=== PATIENT | female | born 1965 | race Native Hawaiian/Other Pacific Islander ===

== ENCOUNTER 2017-02-09 12:02 | Outpatient (CLI) | payer OTHER ==
[~2017-02-09 12:02] MED LIST: ADIPEX-P37.5 M1 OR; ALBU90AE13 INH; ALPR1TAB61 PO; ASA LOW DOSE81 MG OR; BUDE1AER5 INH; BUPR150T PO; CELEXA40 MG OR; CILO100T2 PO; CLARITIN10 M1 PO; FURO40TA93 PO; HYDR-2748 PO; HYDROCHLOROT12.5 M1 PO; KLOR-CON M2020 MEQ OR; LYRICA50 MG PO; MIRAPEX0.5 MG OR; MOBIC7.5 M1 OR; NAPROSYN500 MG PO; NASONEX50 MCG/AC; PRILOSEC20 MG OR; RANITIDINE 150150 MG PO; SIMV10TA PO; SINGULAIR10 MG PO; SPIRIVA IN; SYSTANE OP; TIZA4TAB5 PO; XANAX XR1 MG PO; Z-PAK PO
== END 2017-02-09 19:08 | disposition home or self-care (01) ==
LOC: RAD 12:02
DX: M54.5 Low back pain (principal)

== ENCOUNTER 2017-05-19 14:32 | Inpatient (IN) | payer OTHER ==
[~2017-05-19] VITALS: Ht 170.2 cm; Wt 179.8 kg
[2017-05-19] VITALS (7 sets, daily range): BP systolic 95–136; BP diastolic 54–68; TEMP 97.6–99; Ht 170.2 cm; Wt 179.8 kg
[2017-05-19 15:30] LABS: SODIUM 135 mmol/L (136-145)
[2017-05-19 15:31] LABS: PLATELET COUNT 227 K/uL (152-353)
[2017-05-19 15:49] LABS: PARTIAL THROMBOPLASTIN TIME 25.6 SECONDS (24.5-33.6)
[2017-05-19] MEDS ORDERED: ROPINIROLE0.5 MG OR (16:55)
[2017-05-19] MEDS ORDERED: SYMBICORT1 AE1 IN (16:55)
[2017-05-19] MEDS ORDERED: ALBU0.5N13 IN (16:57)
[2017-05-19] MEDS ORDERED: MONTELUKAST SOD10 MG PO (16:57)
[2017-05-19] MEDS ORDERED: DESIPRAMINE50 MG OR (16:58)
[2017-05-19] MEDS ORDERED: LISI5TAB10 PO (17:01)
[2017-05-19] MEDS ORDERED: LORTAB 10-325 M1 TAB PO (17:02)
[2017-05-19] MEDS ORDERED: DICLOFENAC SOD100 M2 PO (17:03)
[2017-05-19] MEDS ORDERED: GABA300C2 PO (17:04)
[2017-05-19] MEDS ORDERED: ACID REDUCER150 MG OR (17:05)
[2017-05-19] MEDS ORDERED: POTA20TA4 PO (17:06)
[2017-05-19] MEDS ORDERED: SPIRIVA IN (17:07)
[2017-05-19] MEDS ORDERED: HYDROCHLOROT12.5 M1 PO (17:08)
[2017-05-19] MEDS ORDERED: LIPITOR40 MG PO (17:09)
[2017-05-19] MEDS ORDERED: OMEPRAZOLE20 M1 OR (17:09)
[2017-05-19] MEDS ORDERED: ESCITALOPRAM20 MG PO (17:10)
[2017-05-19] MEDS ORDERED: FLUTICASONE0.05 % EX (17:10)
[2017-05-19] MEDS ORDERED: CELECOXIB200 MG PO (17:11)
[2017-05-20] VITALS: BP 114/52; TEMP 97.9
[2017-05-20 04:00] VITALS: BP 122/64; TEMP 98.1
[2017-05-20 05:25] LABS: PLATELET COUNT 213 K/uL (152-353)
[2017-05-20 05:43] LABS: POTASSIUM 4.1 mmol/L (3.6-5.2)
[2017-05-20 08:00] VITALS: BP 117/70; TEMP 97.6
[2017-05-20 12:00] VITALS: BP 148/57; TEMP 98.2
[2017-05-20 16:00] VITALS: BP 114/54; TEMP 97.9
[2017-05-20 20:00] VITALS: BP 131/69; TEMP 98
[2017-05-21] VITALS: BP 112/61; TEMP 97.9
[2017-05-21 04:00] VITALS: BP 117/62; TEMP 98.2
[2017-05-21 05:05] LABS: PLATELET COUNT 193 K/uL (152-353)
[2017-05-21 05:30] LABS: POTASSIUM 4.3 mmol/L (3.6-5.2)
[2017-05-21 08:00] VITALS: BP 110/49; TEMP 97.9
[2017-05-21 12:00] VITALS: BP 117/74; TEMP 98
[2017-05-21 16:00] VITALS: BP 93/59; TEMP 97.6
[2017-05-21 20:00] VITALS: BP 115/55; TEMP 97.8
[2017-05-22] VITALS: BP 103/62; BP 150/76; TEMP 97.8; TEMP 98.6
[2017-05-22 04:00] VITALS: BP 108/69; TEMP 97.7
[2017-05-22 06:03] LABS: POTASSIUM 4.4 mmol/L (3.6-5.2)
[2017-05-22 08:00] VITALS: BP 104/58; TEMP 97.6
[2017-05-22 11:07] LABS: PLATELET COUNT 210 K/uL (152-353)
[2017-05-22 12:00] VITALS: BP 94/49; TEMP 97.9
[2017-05-22 16:00] VITALS: BP 132/68; TEMP 98
[2017-05-22 20:00] VITALS: BP 117/61; BP 183/53; TEMP 97.5; TEMP 97.8
[2017-05-23] VITALS: BP 92/53; TEMP 97.9
[2017-05-23 04:00] VITALS: BP 99/58; TEMP 98.9
[2017-05-23 05:16] LABS: PLATELET COUNT 226 K/uL (152-353)
[2017-05-23 05:26] LABS: POTASSIUM 4.2 mmol/L (3.6-5.2)
[2017-05-23 08:00] VITALS: BP 103/42; TEMP 98
== END 2017-05-23 10:35 | disposition home or self-care (01) | DRG 191 ==
LOC: ED 14:32 → MED/SURG 16:32
PROVIDERS: ADMIT Emergency Medicine
DX: J44.1 Chronic obstructive pulmonary disease with (acute) exacerbation (principal); Z68.44 Body mass index [BMI] 60.0-69.9, adult; E66.01 Morbid (severe) obesity due to excess calories; R06.02 Shortness of breath; Z72.0 Tobacco use; M50.30 Other cervical disc degeneration, unspecified cervical region; M51.36 Other intervertebral disc degeneration, lumbar region; K59.09 Other constipation
CPT/HCPCS: 36415; 36600; 80048; 80053; 81000; 82550; 82553; 82805; 83735; 83880; 84484; 85027; 85379; 85610; 85730; 93005; 93306; 94640; 94664; 94760; 96365; 96375; 99284; J0696; J1100; J1956; J2930

== ENCOUNTER 2017-07-13 18:02 | Emergency (ER) | payer OTHER ==
[~2017-07-13] VITALS: Ht 170.2 cm; Wt 154.2 kg
[~2017-07-13 18:02] MED LIST changes: +ACID REDUCER150 MG OR; +ALBU0.5N13 IN; +CELECOXIB200 MG PO; +DESIPRAMINE50 MG OR; +DICLOFENAC SOD100 M2 PO; +ESCITALOPRAM20 MG PO; +FLUTICASONE0.05 % EX; +GABA300C2 PO; +LIPITOR40 MG PO; +LISI5TAB10 PO; +LORTAB 10-325 M1 TAB PO; +MONTELUKAST SOD10 MG PO; +OMEPRAZOLE20 M1 OR; +POTA20TA4 PO; +ROPINIROLE0.5 MG OR; +SYMBICORT1 AE1 IN
[2017-07-13 18:28] VITALS: TEMP 98.2
[2017-07-13 19:28] LABS: PLATELET COUNT 223 K/uL (152-353)
[2017-07-13 19:34] VITALS: BP 135/82
== END 2017-07-13 19:35 | disposition home or self-care (01) ==
LOC: ED 18:02
DX: K04.7 Periapical abscess without sinus (principal); K02.9 Dental caries, unspecified; R68.84 Jaw pain
CPT/HCPCS: 36415; 85027; 96372; 99283; J0696; J1885

== ENCOUNTER 2017-09-02 14:07 | Outpatient (CLI) | payer OTHER | END 2017-09-02 23:59 | disposition home or self-care (01) | LOC: RAD 14:07 | DX: M47.816 Spondylosis without myelopathy or radiculopathy, lumbar region (principal); M47.817 Spondylosis without myelopathy or radiculopathy, lumbosacral region ==

== ENCOUNTER 2017-09-27 16:54 | Outpatient (CLI) | payer OTHER ==
[2017-09-27 18:10] LABS: POTASSIUM 4.7 mmol/L (3.6-5.2)
== END 2017-09-27 18:13 | disposition home or self-care (01) ==
LOC: LABW 16:54
PROVIDERS: Nurse Practitioner Primary Care
DX: G25.81 Restless legs syndrome (principal); I50.9 Heart failure, unspecified
CPT/HCPCS: 80048; 82607; 82728; 82746

== ENCOUNTER 2018-01-10 14:05 | Outpatient (CLI) | payer OTHER | END 2018-01-10 19:52 | disposition home or self-care (01) | LOC: RAD 14:05 | DX: M54.12 Radiculopathy, cervical region (principal) ==

== ENCOUNTER 2018-03-01 09:15 | Emergency (ER) | payer OTHER ==
[~2018-03-01] VITALS: Ht 170.2 cm; Wt 136.5 kg
[2018-03-01 09:15] VITALS: TEMP 97.9
[2018-03-01 09:47] LABS: PLATELET COUNT 256 K/uL (152-353)
[2018-03-01 10:03] LABS: POTASSIUM 4.2 mmol/L (3.6-5.2); SODIUM 142 mmol/L (136-145)
[2018-03-01 12:33] VITALS: BP 122/58
== END 2018-03-01 12:48 | disposition home or self-care (01) ==
LOC: ED 09:15
DX: R07.89 Other chest pain (principal); M94.0 Chondrocostal junction syndrome [Tietze]
CPT/HCPCS: 36415; 80053; 81000; 82550; 82553; 83880; 84484; 85027; 93005; 99284

== ENCOUNTER 2018-03-01 09:30 | Outpatient (CLI) | payer OTHER | END 2018-03-01 09:34 | disposition short-term general hospital (02) | LOC: AMB 09:30 | DX: J44.1 Chronic obstructive pulmonary disease with (acute) exacerbation (principal); R07.89 Other chest pain | CPT/HCPCS: A0425; A0427 ==

== ENCOUNTER 2018-03-16 13:50 | Outpatient (CLI) | payer OTHER ==
[2018-03-16 14:10] LABS: POTASSIUM 4.8 mmol/L (3.6-5.2)
== END 2018-03-16 19:35 | disposition home or self-care (01) ==
LOC: LABW 13:50
PROVIDERS: Internal Medicine Cardiovascular Disease
DX: I50.9 Heart failure, unspecified (principal); Z79.899 Other long term (current) drug therapy
CPT/HCPCS: 36415; 80048; 83880

== ENCOUNTER → 2018-07-06 20:31 | Outpatient (CLI) | payer OTHER | END | disposition home or self-care (01) | LOC: AMB 20:31 | DX: Z03.89 Encounter for observation for other suspected diseases and conditions ruled out (principal) ==

== ENCOUNTER 2018-07-06 20:56 | Emergency (ER) | payer OTHER ==
[~2018-07-06] VITALS: Ht 170.2 cm; Wt 188.2 kg
[2018-07-06 21:40] LABS: PLATELET COUNT 194 K/uL (152-353)
[2018-07-06 21:49] LABS: POTASSIUM 4.6 mmol/L (3.6-5.2); SODIUM 139 mmol/L (136-145)
[2018-07-06 22:40] VITALS: BP 128/65; TEMP 98.4
== END 2018-07-06 22:40 | disposition home or self-care (01) ==
LOC: ED 20:56
PROVIDERS: Emergency Medicine
DX: S20.212A Contusion of left front wall of thorax, initial encounter (principal); S20.211A Contusion of right front wall of thorax, initial encounter; S53.492A Other sprain of left elbow, initial encounter; S63.592A Other specified sprain of left wrist, initial encounter; W18.39XA Other fall on same level, initial encounter; Y92.89 Other specified places as the place of occurrence of the external cause
CPT/HCPCS: 36415; 80053; 82550; 82553; 84484; 85027; 93005; 99283

== ENCOUNTER 2018-08-14 19:05 | Outpatient (CLI) | payer OTHER ==
[2018-08-15] MEDS ORDERED: HYDR-3182 PO (14:00)
[2018-08-15] MEDS ORDERED: CYCL10TA35 PO (14:00)
[2018-08-15] MEDS ORDERED: FURO40TA93 PO (14:01)
[2018-08-15] MEDS ORDERED: LORADAMED10 MG PO (14:02)
[2018-08-15] MEDS ORDERED: TRAMADOL HYDROC50 MG PO (14:02)
[2018-08-15] MEDS ORDERED: PROAIR HFA INH (14:03)
== END 2018-08-14 19:08 | disposition short-term general hospital (02) ==
LOC: AMB 19:05
DX: R06.09 Other forms of dyspnea (principal)
CPT/HCPCS: A0425; A0427

== ENCOUNTER 2018-08-14 19:17 | Inpatient (IN) | payer OTHER ==
[~2018-08-14] VITALS: Ht 170.2 cm; Wt 194.3 kg
[2018-08-14 19:21] VITALS: BP 113/50; TEMP 98
[2018-08-14 20:31] LABS: PLATELET COUNT 202 K/uL (152-353)
[2018-08-14 20:46] LABS: POTASSIUM 4.5 mmol/L (3.6-5.2); SODIUM 138 mmol/L (136-145)
[2018-08-15 02:20] VITALS: BP 106/44; TEMP 100.2; Ht 170.2 cm; Wt 194.3 kg
[2018-08-15 04:00] VITALS: BP 94/43; TEMP 98.8
[2018-08-15 04:53] LABS: PLATELET COUNT 204 K/uL (152-353)
[2018-08-15 05:21] LABS: POTASSIUM 3.8 mmol/L (3.6-5.2)
[2018-08-15 08:00] VITALS: BP 121/56; TEMP 98.4
[2018-08-15 12:00] VITALS: BP 136/64; TEMP 97
[2018-08-15] MEDS ORDERED: HYDR-3182 PO (14:00)
[2018-08-15] MEDS ORDERED: CYCL10TA35 PO (14:00)
[2018-08-15] MEDS ORDERED: FURO40TA93 PO (14:01)
[2018-08-15] MEDS ORDERED: LORADAMED10 MG PO (14:02)
[2018-08-15] MEDS ORDERED: TRAMADOL HYDROC50 MG PO (14:02)
[2018-08-15] MEDS ORDERED: PROAIR HFA INH (14:03)
[2018-08-15 16:00] VITALS: BP 112/50; TEMP 98.1
[2018-08-15 20:00] VITALS: BP 115/66; TEMP 98.9
[2018-08-16] VITALS (7 sets, daily range): BP systolic 102–125; BP diastolic 46–72; TEMP 97.8–99.3
[2018-08-16 07:53] LABS: PLATELET COUNT 173 K/uL (152-353)
[2018-08-16 08:36] LABS: POTASSIUM 4.1 mmol/L (3.6-5.2)
[2018-08-17] VITALS: BP 107/49; TEMP 98.8
[2018-08-17 04:00] VITALS: BP 112/54; TEMP 98.5
[2018-08-17 06:21] LABS: PLATELET COUNT 201 K/uL (152-353)
[2018-08-17 06:29] LABS: POTASSIUM 4.9 mmol/L (3.6-5.2)
[2018-08-17 08:00] VITALS: BP 111/49; TEMP 98.1
[2018-08-17 12:00] VITALS: BP 116/41; TEMP 98.3
[2018-08-17 16:00] VITALS: BP 138/67; TEMP 98
[2018-08-17 20:25] VITALS: BP 130/69; TEMP 98.1
[2018-08-18 00:23] VITALS: BP 139/64; TEMP 98.3
[2018-08-18 04:00] VITALS: BP 178/78
[2018-08-18 05:50] LABS: PLATELET COUNT 207 K/uL (152-353)
[2018-08-18 05:58] LABS: POTASSIUM 4.3 mmol/L (3.6-5.2)
[2018-08-18 08:00] VITALS: BP 148/66; TEMP 97.5
[2018-08-18 12:00] VITALS: BP 143/67; TEMP 97.4
[2018-08-18 16:00] VITALS: BP 139/67; TEMP 97.7
[2018-08-18 20:00] VITALS: BP 125/74; TEMP 98.2
[2018-08-19] VITALS: BP 174/80
[2018-08-19 04:05] VITALS: BP 146/69; TEMP 98.6
[2018-08-19 05:24] LABS: PLATELET COUNT 186 K/uL (152-353)
[2018-08-19 05:34] LABS: POTASSIUM 4.1 mmol/L (3.6-5.2)
[2018-08-19 08:00] VITALS: BP 132/76; TEMP 97.9
[2018-08-19 12:00] VITALS: BP 122/71; TEMP 98.3
[2018-08-19 13:30] VITALS: BP 133/68
[2018-08-19 13:35] VITALS: BP 165/108
== END 2018-08-19 14:05 | disposition short-term general hospital (02) | DRG 193 ==
LOC: ED 19:17 → MED/SURG 21:45 → ICU 08-19 13:16
PROVIDERS: Emergency Medicine; ADMIT Internal Medicine
DX: J09.X1 Influenza due to identified novel influenza A virus with pneumonia (principal); J80 Acute respiratory distress syndrome; J44.0 Chronic obstructive pulmonary disease with (acute) lower respiratory infection; Z68.44 Body mass index [BMI] 60.0-69.9, adult; K21.9 Gastro-esophageal reflux disease without esophagitis; E78.5 Hyperlipidemia, unspecified; I10 Essential (primary) hypertension; E87.6 Hypokalemia; F41.8 Other specified anxiety disorders; E66.01 Morbid (severe) obesity due to excess calories; Z71.3 Dietary counseling and surveillance; G62.89 Other specified polyneuropathies; F17.210 Nicotine dependence, cigarettes, uncomplicated
CPT/HCPCS: 31500; 36415; 36600; 80053; 81000; 82550; 82805; 83605; 83880; 84484; 85027; 85379; 87040; 87070; 87077; 87205; 87502; 87899; 93005; 94640; 94664; 94760; 96365; 96366; 99284; J0456; J0696; J1650; J2060; J2543; J2930; J3370

== ENCOUNTER 2018-09-30 12:55 | Outpatient (CLI) | payer OTHER ==
[~2018-09-30 12:55] MED LIST changes: +CYCL10TA35 PO; +HYDR-3182 PO; +LORADAMED10 MG PO; +PROAIR HFA INH; +TRAMADOL HYDROC50 MG PO
== END 2018-09-30 12:58 | disposition short-term general hospital (02) ==
LOC: AMB 12:55
DX: R06.02 Shortness of breath (principal)
CPT/HCPCS: A0425; A0427

== ENCOUNTER 2018-09-30 13:02 | Emergency (ER) | payer OTHER ==
[~2018-09-30] VITALS: Ht 170.2 cm; Wt 190.1 kg
[2018-09-30 14:18] LABS: PLATELET COUNT 223 K/uL (152-353)
[2018-09-30 14:25] LABS: SODIUM 139 mmol/L (136-145)
[2018-09-30 15:05] VITALS: BP 118/67; TEMP 97.5
== END 2018-09-30 15:05 | disposition home or self-care (01) ==
LOC: ED 13:02
PROVIDERS: Emergency Medicine
DX: I50.9 Heart failure, unspecified (principal)
CPT/HCPCS: 80053; 81000; 82550; 82553; 83880; 84484; 85027; 93005; 94664; 96374; 96375; 99284; J1940; J2930

== ENCOUNTER 2018-10-07 17:06 | Emergency (ER) | payer OTHER ==
[~2018-10-07] VITALS: Ht 170.2 cm; Wt 191.9 kg
[2018-10-07 17:15] VITALS: TEMP 99.1
[2018-10-07 17:51] LABS: PLATELET COUNT 209 K/uL (152-353)
[2018-10-07 18:01] LABS: POTASSIUM 4.6 mmol/L (3.6-5.2); SODIUM 141 mmol/L (136-145)
[2018-10-07 21:08] LABS: PARTIAL THROMBOPLASTIN TIME 23.2 SECONDS (24.5-33.6)
[2018-10-07 21:10] VITALS: BP 127/77
== END 2018-10-07 23:34 | disposition short-term general hospital (02) ==
LOC: ED 17:06
PROVIDERS: Emergency Medicine
DX: I50.9 Heart failure, unspecified (principal); R00.0 Tachycardia, unspecified
CPT/HCPCS: 80053; 82550; 83605; 83735; 83880; 84484; 85027; 85610; 85730; 87040; 93005; 94664; 99284; J0696; J1940; J3475

== ENCOUNTER 2018-11-23 16:49 | Emergency (ER) | payer OTHER ==
[~2018-11-23] VITALS: Ht 170.2 cm; Wt 191.9 kg
[2018-11-23 21:16] VITALS: BP 136/70; TEMP 98.1
== END 2018-11-23 21:16 | disposition home or self-care (01) ==
LOC: ED 16:49
DX: S39.012A Strain of muscle, fascia and tendon of lower back, initial encounter (principal); S76.012A Strain of muscle, fascia and tendon of left hip, initial encounter; W18.39XA Other fall on same level, initial encounter; Y92.098 Other place in other non-institutional residence as the place of occurrence of the external cause
CPT/HCPCS: 99283

== ENCOUNTER 2019-03-06 14:05 | Outpatient (CLI) | payer OTHER ==
[~2019-03-06 14:05] MED LIST changes: -ACID REDUCER150 MG OR; +ACID REDUCER150 MG PO; -DESIPRAMINE50 MG OR; +DESIPRAMINE50 MG PO; -OMEPRAZOLE20 M1 OR; +OMEPRAZOLE20 M1 PO
[2019-03-06] MEDS ORDERED: ROPINIROLE2 M1 PO (14:33)
[2019-03-06] MEDS ORDERED: CYCLOBENZAPRINE5 MG PO (14:34)
[2019-03-06] MEDS ORDERED: DOK100 MG PO (14:35)
== END 2019-03-06 14:08 | disposition short-term general hospital (02) ==
LOC: AMB 14:05
DX: M25.511 Pain in right shoulder (principal); S41.111A Laceration without foreign body of right upper arm, initial encounter; W18.39XA Other fall on same level, initial encounter; Y93.89 Activity, other specified; Y92.018 Other place in single-family (private) house as the place of occurrence of the external cause
CPT/HCPCS: A0425; A0429

== ENCOUNTER 2019-03-06 14:16 | Observation (INO) | payer OTHER ==
[~2019-03-06] VITALS: Ht 170.2 cm; Wt 187.8 kg
[2019-03-06] VITALS (12 sets, daily range): BP systolic 72–121; BP diastolic 34–70; TEMP 97.7–98.1; Ht 170.2 cm; Wt 187.8 kg
[2019-03-06] MEDS ORDERED: ROPINIROLE2 M1 PO (14:33)
[2019-03-06] MEDS ORDERED: CYCLOBENZAPRINE5 MG PO (14:34)
[2019-03-06] MEDS ORDERED: DOK100 MG PO (14:35)
[2019-03-06 14:43] LABS: PLATELET COUNT 252 K/uL (152-353)
[2019-03-06 14:53] LABS: POTASSIUM 5.5 mmol/L (3.6-5.2)
[2019-03-07 04:00] VITALS: BP 97/38; TEMP 97.9
[2019-03-07 05:33] LABS: PLATELET COUNT 171 K/uL (152-353)
[2019-03-07 05:39] LABS: POTASSIUM 4.8 mmol/L (3.6-5.2)
[2019-03-07 08:00] VITALS: BP 72/38; TEMP 98.5
[2019-03-07 12:00] VITALS: BP 76/43; TEMP 98.1
[2019-03-07 16:00] VITALS: BP 103/79; TEMP 99
[2019-03-07 20:00] VITALS: BP 92/72; TEMP 99.9
[2019-03-07 23:55] VITALS: BP 80/52; TEMP 99.4
[2019-03-08 04:00] VITALS: BP 116/99; TEMP 99.9
[2019-03-08 08:00] VITALS: BP 96/43; TEMP 98.6
[2019-03-08 08:21] LABS: PLATELET COUNT 198 K/uL (152-353)
[2019-03-08 08:22] LABS: POTASSIUM 4.7 mmol/L (3.6-5.2)
[2019-03-08 12:00] VITALS: BP 98/47; TEMP 98.7
[2019-03-08 16:00] VITALS: BP 97/46; TEMP 98.5
[2019-03-08 20:00] VITALS: BP 92/41; TEMP 99.3
[2019-03-08 23:59] VITALS: BP 90/40; TEMP 98.6
[2019-03-09 04:00] VITALS: BP 92/44; TEMP 98.6
[2019-03-09 05:17] LABS: POTASSIUM 4.8 mmol/L (3.6-5.2)
[2019-03-09 08:00] VITALS: BP 102/48; TEMP 97.9
== END 2019-03-09 09:40 | disposition home or self-care (01) ==
LOC: ED 14:16 → MED/SURG 17:08
PROVIDERS: Family Medicine; Internal Medicine; ADMIT Student in an Organized Health Care Education/Training Program
DX: N17.8 Other acute kidney failure (principal); E86.0 Dehydration; J80 Acute respiratory distress syndrome; J44.1 Chronic obstructive pulmonary disease with (acute) exacerbation; E66.01 Morbid (severe) obesity due to excess calories; I10 Essential (primary) hypertension; E78.49 Other hyperlipidemia; M79.7 Fibromyalgia; K21.9 Gastro-esophageal reflux disease without esophagitis; I50.9 Heart failure, unspecified; G62.89 Other specified polyneuropathies; I95.89 Other hypotension; R51 Headache
CPT/HCPCS: 36415; 80048; 80053; 81000; 82533; 82570; 84300; 84443; 85027; 93005; 93306; 94640; 94664; 94760; 96360; 96361; 96365; 96366; 96372; 96375; 99220; 99284; G0378; J1650; J2270

== ENCOUNTER 2019-07-20 11:22 | Outpatient (CLI) | payer OTHER ==
[~2019-07-20 11:22] MED LIST changes: +CYCLOBENZAPRINE5 MG PO; +DOK100 MG PO; +ROPINIROLE2 M1 PO
== END 2019-07-20 11:26 | disposition short-term general hospital (02) ==
LOC: AMB 11:22
DX: R45.851 Suicidal ideations (principal)
CPT/HCPCS: A0425; A0429

== ENCOUNTER 2019-07-20 11:30 | Emergency (ER) | payer OTHER ==
[~2019-07-20] VITALS: Ht 170.2 cm; Wt 176.0 kg
[2019-07-20 12:25] LABS: PLATELET COUNT 237 K/uL (152-353)
[2019-07-20 12:32] LABS: POTASSIUM 4.7 mmol/L (3.6-5.2)
[2019-07-20 16:35] VITALS: BP 134/78; TEMP 98
== END 2019-07-20 16:35 | disposition home or self-care (01) ==
LOC: ED 11:30
PROVIDERS: Emergency Medicine
DX: F32.89 Other specified depressive episodes (principal); I50.9 Heart failure, unspecified
CPT/HCPCS: 80053; 80307; 80320; 80329; 81000; 85027; 93005; 96374; 99285; J1940

== ENCOUNTER 2019-08-21 13:03 | Outpatient (CLI) | payer OTHER | END 2019-08-21 19:11 | disposition home or self-care (01) | LOC: MAMMO 13:03 | DX: Z12.31 Encounter for screening mammogram for malignant neoplasm of breast (principal) ==

== ENCOUNTER 2020-01-09 14:34 | Outpatient (CLI) | payer OTHER | END 2020-01-09 20:39 | disposition home or self-care (01) | LOC: CT 14:34 | DX: Z79.899 Other long term (current) drug therapy (principal); S09.8XXA Other specified injuries of head, initial encounter; R51 Headache; R55 Syncope and collapse ==

== ENCOUNTER 2021-02-09 18:15 | Emergency (ER) | payer OTHER ==
[~2021-02-09] VITALS: Ht 167.6 cm; Wt 176.9 kg
[~2021-02-09 18:15] MED LIST changes: +FENT50DI TD; +LORA0.5T17 PO
[2021-02-09 18:35] VITALS: BP 158/110
[2021-02-09 19:34] VITALS: TEMP 98.5
== END 2021-02-09 19:34 | disposition home or self-care (01) ==
LOC: ED 18:15
DX: K08.89 Other specified disorders of teeth and supporting structures (principal); K04.7 Periapical abscess without sinus
CPT/HCPCS: 96372; 99283; J0696; J1885; J2930

== ENCOUNTER 2021-03-10 07:38 | Outpatient (CLI) | payer OTHER | END 2021-03-10 19:06 | disposition home or self-care (01) | LOC: US 07:38 | PROVIDERS: ATTEND Internal Medicine | DX: H92.02 Otalgia, left ear (principal); H91.8X2 Other specified hearing loss, left ear; T14.8XXA Other injury of unspecified body region, initial encounter; M79.642 Pain in left hand; S67.22XA Crushing injury of left hand, initial encounter; N18.32 Chronic kidney disease, stage 3b ==

== ENCOUNTER 2021-06-09 18:32 | Emergency (ER) | payer OTHER ==
[~2021-06-09] VITALS: Ht 167.6 cm; Wt 176.9 kg
[2021-06-09 19:08] LABS: PLATELET COUNT 191 K/uL (152-353)
[2021-06-09 19:24] LABS: POTASSIUM 4.9 mmol/L (3.6-5.2)
[2021-06-09 23:20] VITALS: BP 112/57; TEMP 98.1
== END 2021-06-09 23:20 | disposition home or self-care (01) ==
LOC: ED 18:32
PROVIDERS: Emergency Medicine Emergency Medical Services
DX: R06.09 Other forms of dyspnea (principal); I50.9 Heart failure, unspecified; J44.9 Chronic obstructive pulmonary disease, unspecified; Z20.822 Contact with and (suspected) exposure to COVID-19; F17.210 Nicotine dependence, cigarettes, uncomplicated
CPT/HCPCS: 36415; 80053; 83880; 84484; 85027; 87502; 87635; 93005; 94664; 96374; 96375; 99284; J1940; J2930; U0003

== ENCOUNTER 2021-06-15 19:45 | Inpatient (IN) | payer OTHER ==
[~2021-06-15] VITALS: Ht 170.2 cm; Wt 158.9 kg
[2021-06-15] VITALS (8 sets, daily range): BP systolic 135–157; BP diastolic 66–86; TEMP 98.5–99.2; Ht 170.2 cm; Wt 158.9 kg
[2021-06-15 20:57] LABS: PLATELET COUNT 297 K/uL (152-353)
[2021-06-15 21:06] LABS: POTASSIUM 3.9 mmol/L (3.6-5.2)
[2021-06-16 03:57] VITALS: BP 110/62; TEMP 98.8
[2021-06-16 05:23] LABS: PLATELET COUNT 290 K/uL (152-353)
[2021-06-16 05:39] LABS: POTASSIUM 4.6 mmol/L (3.6-5.2)
[2021-06-16 08:00] VITALS: BP 118/63; BP 133/78; TEMP 97.9; TEMP 98.6
[2021-06-16] MEDS ORDERED: METO2.5T3 PO (11:32)
[2021-06-16] MEDS ORDERED: DULOXETINE HCL30 MG PO (11:33)
[2021-06-16 12:00] VITALS: BP 133/78; TEMP 98.6
[2021-06-16 16:00] VITALS: BP 119/66; TEMP 98.4
[2021-06-16 20:10] VITALS: BP 125/52; TEMP 98
[2021-06-17] VITALS: BP 138/66; TEMP 98.6
[2021-06-17 04:00] VITALS: BP 142/51; TEMP 98.4
[2021-06-17 08:00] VITALS: BP 118/67; TEMP 97.6
[2021-06-17 08:05] LABS: PLATELET COUNT 328 K/uL (152-353)
[2021-06-17 08:25] LABS: POTASSIUM 4.4 mmol/L (3.6-5.2)
[2021-06-17 12:00] VITALS: BP 121/66; TEMP 98.7
[2021-06-17 16:00] VITALS: BP 107/59; TEMP 98.4
[2021-06-17 20:00] VITALS: BP 114/60; TEMP 98.3
[2021-06-18] VITALS: BP 146/68; TEMP 98.3
[2021-06-18 04:19] VITALS: BP 114/88; TEMP 98.8
[2021-06-18 04:41] LABS: PLATELET COUNT 317 K/uL (152-353)
[2021-06-18 04:51] LABS: POTASSIUM 4.9 mmol/L (3.6-5.2)
[2021-06-18 08:00] VITALS: BP 118/62; TEMP 98.1
[2021-06-18 12:00] VITALS: BP 116/68; TEMP 98.2
[2021-06-18 16:00] VITALS: BP 132/69; TEMP 98.1
[2021-06-18] MEDS ORDERED: LEVOFLOXACIN750 MG PO (17:34)
== END 2021-06-18 18:20 | disposition home health service (06) | DRG 190 ==
LOC: ED 19:45 → MED/SURG 22:56
PROVIDERS: ADMIT Emergency Medicine Emergency Medical Services; ATTEND Internal Medicine Endocrinology, Diabetes & Metabolism
DX: J44.0 Chronic obstructive pulmonary disease with (acute) lower respiratory infection (principal); J18.8 Other pneumonia, unspecified organism; N17.8 Other acute kidney failure; Z68.43 Body mass index [BMI] 50.0-59.9, adult; E78.49 Other hyperlipidemia; K21.9 Gastro-esophageal reflux disease without esophagitis; E66.01 Morbid (severe) obesity due to excess calories; M79.7 Fibromyalgia; I11.0 Hypertensive heart disease with heart failure; I50.9 Heart failure, unspecified
CPT/HCPCS: 36415; 80048; 80053; 83880; 84484; 85027; 87502; 87635; 93005; 94640; 94664; 94760; 96360; 96365; 96366; 96367; 96375; 99284; J0456; J0696; J2930; U0003

== ENCOUNTER 2021-07-21 18:49 | Emergency (ER) | payer OTHER ==
[~2021-07-21] VITALS: Ht 170.2 cm; Wt 158.8 kg
[~2021-07-21 18:49] MED LIST changes: +DULOXETINE HCL30 MG PO; +LEVOFLOXACIN750 MG PO; +METO2.5T3 PO
[2021-07-21 19:47] VITALS: BP 119/66; TEMP 98.6
== END 2021-07-21 19:47 | disposition home or self-care (01) ==
LOC: ED 18:49
DX: S81.052A Open bite, left knee, initial encounter (principal); W54.0XXA Bitten by dog, initial encounter; Y92.89 Other specified places as the place of occurrence of the external cause
CPT/HCPCS: 90471; 90715; 99283

== ENCOUNTER 2021-10-27 13:42 | Outpatient (CLI) | payer OTHER | END 2021-10-27 20:15 | disposition home or self-care (01) | LOC: CT 13:42 | PROVIDERS: ATTEND Nurse Practitioner Family | DX: F17.210 Nicotine dependence, cigarettes, uncomplicated (principal); J44.9 Chronic obstructive pulmonary disease, unspecified ==

== ENCOUNTER 2021-11-25 12:58 | Outpatient (CLI) | payer OTHER | END 2021-11-25 19:04 | disposition home or self-care (01) | LOC: RAD 12:58 | PROVIDERS: ATTEND Nurse Practitioner Family | DX: I12.9 Hypertensive chronic kidney disease with stage 1 through stage 4 chronic kidney disease, or unspecified chronic kidney disease (principal); N18.30 Chronic kidney disease, stage 3 unspecified; J44.9 Chronic obstructive pulmonary disease, unspecified; K21.9 Gastro-esophageal reflux disease without esophagitis; E78.49 Other hyperlipidemia; G62.89 Other specified polyneuropathies; G25.81 Restless legs syndrome; G47.30 Sleep apnea, unspecified; E55.9 Vitamin D deficiency, unspecified; M25.562 Pain in left knee ==

== ENCOUNTER 2022-01-27 09:36 | Outpatient (CLI) | payer OTHER ==
[2022-01-27 10:00] LABS: PLATELET COUNT 174 K/uL (152-353)
[2022-01-27 10:03] LABS: POTASSIUM 5.2 mmol/L (3.6-5.2)
== END 2022-01-27 18:52 | disposition home or self-care (01) ==
LOC: LABW 09:36
PROVIDERS: ATTEND Nurse Practitioner Family
DX: N18.9 Chronic kidney disease, unspecified (principal)
CPT/HCPCS: 36415; 80053; 85027

== ENCOUNTER 2022-02-11 15:10 | Emergency (ER) | payer OTHER ==
[~2022-02-11] VITALS: Ht 170.2 cm; Wt 158.8 kg
[2022-02-11 15:10] VITALS: TEMP 99.5
[2022-02-11 15:40] LABS: PLATELET COUNT 164 K/uL (152-353)
[2022-02-11 16:45] VITALS: BP 119/55
== END 2022-02-11 16:52 | disposition home or self-care (01) ==
LOC: ED 15:10
PROVIDERS: Emergency Medicine Emergency Medical Services
DX: J20.9 Acute bronchitis, unspecified (principal); Z20.822 Contact with and (suspected) exposure to COVID-19
CPT/HCPCS: 85027; 87502; 87635; 96360; 96365; 99284; J0696; U0003

== ENCOUNTER 2022-02-17 10:40 | Inpatient (IN) | payer OTHER ==
[~2022-02-17] VITALS: Ht 170.2 cm; Wt 160.6 kg
[~2022-02-17 10:40] MED LIST changes: -ALBU0.5N13 IN; +ALBUTEROL0.083 % INH; +OMEPRAZOLE DR20 MG PO; -OMEPRAZOLE20 M1 PO; -SYMBICORT1 AE1 IN
[2022-02-17 11:15] VITALS: BP 74/30; TEMP 99.8; Ht 170.2 cm; Wt 160.6 kg
[2022-02-17 12:23] LABS: PLATELET COUNT 128 K/uL (152-353)
[2022-02-17 12:44] LABS: POTASSIUM 5.6 mmol/L (3.6-5.2)
[2022-02-17 20:00] VITALS: BP 94/45; TEMP 98.4
[2022-02-17] MEDS ORDERED: MULTIVITAMIN PO (21:06)
[2022-02-17] MEDS ORDERED: DOCU100C10 PO (21:07)
[2022-02-17] MEDS ORDERED: BUSPIRONE10 MG PO (21:07)
[2022-02-17] MEDS ORDERED: MONT10TA PO (21:08)
[2022-02-17] MEDS ORDERED: VITAMIN D1000 UNI1 PO (21:11)
[2022-02-17] MEDS ORDERED: FLONASE AL50 MCG/ACT NAS (21:17)
[2022-02-17] MEDS ORDERED: FERROUS SULF325 M1 PO (21:19)
[2022-02-17] MEDS ORDERED: LISI5TAB10 PO (21:20)
[2022-02-17] MEDS ORDERED: HYDR10TA51 PO (21:22)
[2022-02-18] VITALS: BP 101/49; TEMP 97.7
[2022-02-18 04:00] VITALS: BP 99/47; TEMP 97.4
[2022-02-18 04:54] LABS: PLATELET COUNT 126 K/uL (152-353)
[2022-02-18 05:29] LABS: POTASSIUM 5.4 mmol/L (3.6-5.2)
[2022-02-18 12:00] VITALS: BP 106/51; TEMP 97.9
[2022-02-18 16:00] VITALS: BP 116/63; TEMP 97.9
[2022-02-18 17:25] VITALS: BP 116/63; TEMP 97.9
[2022-02-18 20:00] VITALS: BP 112/56; TEMP 98.1
[2022-02-19] VITALS: BP 110/62; TEMP 98.2
[2022-02-19 04:00] VITALS: BP 121/59; TEMP 98.1
[2022-02-19 05:20] LABS: PLATELET COUNT 167 K/uL (152-353)
[2022-02-19 05:45] LABS: POTASSIUM 5.1 mmol/L (3.6-5.2)
[2022-02-19 08:00] VITALS: BP 120/61; TEMP 97.6
[2022-02-19 12:00] VITALS: BP 132/64; TEMP 97.6
[2022-02-19 16:00] VITALS: BP 131/58; TEMP 98
[2022-02-19 20:00] VITALS: BP 118/61; TEMP 98.1
[2022-02-20 01:10] VITALS: BP 112/60; TEMP 98.1
[2022-02-20 04:00] VITALS: BP 155/68; TEMP 97.8
[2022-02-20 05:29] LABS: PLATELET COUNT 184 K/uL (152-353)
[2022-02-20 05:48] LABS: POTASSIUM 5.5 mmol/L (3.6-5.2)
[2022-02-20 08:00] VITALS: BP 144/64; TEMP 99.1
[2022-02-20 12:00] VITALS: BP 143/62; TEMP 98.9
[2022-02-20] MEDS ORDERED: ASCO500T18 PO (13:55)
[2022-02-20] MEDS ORDERED: ZINC220C4 PO (13:58)
[2022-02-20] MEDS ORDERED: PRED10TA27 PO (13:58)
[2022-02-20] MEDS ORDERED: AZIT250T3 PO (14:01)
[2022-02-20] MEDS ORDERED: PEPCID20 MG PO (14:16)
== END 2022-02-20 14:55 | disposition home or self-care (01) | DRG 177 ==
LOC: MED/SURG 10:40
PROVIDERS: Internal Medicine; ADMIT Internal Medicine; ATTEND Internal Medicine
DX: U07.1 COVID-19 (principal); J96.21 Acute and chronic respiratory failure with hypoxia; J44.1 Chronic obstructive pulmonary disease with (acute) exacerbation; Z68.43 Body mass index [BMI] 50.0-59.9, adult; I13.2 Hypertensive heart and chronic kidney disease with heart failure and with stage 5 chronic kidney disease, or end stage renal disease; N18.5 Chronic kidney disease, stage 5; N17.8 Other acute kidney failure; M15.8 Other polyosteoarthritis; K21.9 Gastro-esophageal reflux disease without esophagitis; E78.49 Other hyperlipidemia; F41.8 Other specified anxiety disorders; E66.01 Morbid (severe) obesity due to excess calories; F17.210 Nicotine dependence, cigarettes, uncomplicated; I50.9 Heart failure, unspecified; G62.89 Other specified polyneuropathies
CPT/HCPCS: 36415; 36600; 80048; 80053; 81002; 82272; 82306; 82310; 82570; 82607; 82728; 82746; 82805; 83516; 83540; 83550; 83880; 83970; 84100; 84145; 84165; 84166; 84550; 85027; 86037; 86140; 86225; 87535; 87635; 94760; 99220; G0379; J0456; J1650; J1815; J2930; J7120; U0003

== ENCOUNTER 2022-04-23 13:09 | Outpatient (CLI) | payer OTHER ==
[~2022-04-23 13:09] MED LIST changes: +ASCO500T18 PO; +AZIT250T3 PO; +BUSPIRONE10 MG PO; +DOCU100C10 PO; +FERROUS SULF325 M1 PO; +FLONASE AL50 MCG/ACT NAS; +HYDR10TA51 PO; +MONT10TA PO; +MULTIVITAMIN PO; +PEPCID20 MG PO; +PRED10TA27 PO; +VITAMIN D1000 UNI1 PO; +ZINC220C4 PO
== END 2022-04-23 22:09 | disposition home or self-care (01) ==
LOC: LABW 13:09
PROVIDERS: ATTEND Nurse Practitioner Family
DX: I12.9 Hypertensive chronic kidney disease with stage 1 through stage 4 chronic kidney disease, or unspecified chronic kidney disease (principal); N18.30 Chronic kidney disease, stage 3 unspecified; E78.49 Other hyperlipidemia; D64.89 Other specified anemias; R89.8 Other abnormal findings in specimens from other organs, systems and tissues; R74.8 Abnormal levels of other serum enzymes; E55.9 Vitamin D deficiency, unspecified
CPT/HCPCS: 36415; 84075; 85652; 86038; 86430

== ENCOUNTER 2022-04-28 16:05 | Emergency (ER) | payer OTHER ==
[~2022-04-28] VITALS: Ht 170.2 cm; Wt 160.6 kg
[2022-04-28 16:55] LABS: PLATELET COUNT 137 K/uL (152-353)
[2022-04-28 17:03] LABS: POTASSIUM 4.9 mmol/L (3.6-5.2)
[2022-04-28 17:12] LABS: PARTIAL THROMBOPLASTIN TIME 29.6 SECONDS (24.5-33.6)
[2022-04-28 17:48] VITALS: BP 110/55; TEMP 98.3
== END 2022-04-28 17:48 | disposition home or self-care (01) ==
LOC: ED 16:05
PROVIDERS: Emergency Medicine
DX: R06.02 Shortness of breath (principal); Z20.822 Contact with and (suspected) exposure to COVID-19; Z99.81 Dependence on supplemental oxygen
CPT/HCPCS: 80053; 83880; 84484; 85027; 85610; 85730; 87502; 87635; 93005; 99283; U0003

== ENCOUNTER 2022-09-14 17:22 | Emergency (ER) | payer OTHER ==
[~2022-09-14] VITALS: Ht 170.2 cm; Wt 127.0 kg
[2022-09-14 17:22] VITALS: TEMP 98.7
[2022-09-14 18:25] LABS: PLATELET COUNT 214 K/uL (152-353)
[2022-09-14 18:48] LABS: POTASSIUM 5.7 mmol/L (3.6-5.2)
[2022-09-14 23:34] VITALS: BP 119/62
== END 2022-09-14 23:34 | disposition short-term general hospital (02) ==
LOC: ED 17:22
PROVIDERS: Emergency Medicine Emergency Medical Services
DX: N17.9 Acute kidney failure, unspecified (principal); J44.1 Chronic obstructive pulmonary disease with (acute) exacerbation; R41.82 Altered mental status, unspecified
CPT/HCPCS: 36415; 36600; 80053; 82550; 82805; 83735; 83880; 84484; 85027; 85379; 87040; 93005; 94664; 96365; 96375; 99284; J0696; J1815; J1940; J3490; J7060

== ENCOUNTER 2022-11-06 11:16 | Outpatient (CLI) | payer OTHER | END 2022-11-06 19:40 | disposition home or self-care (01) | LOC: CT 11:16 | PROVIDERS: ATTEND Nurse Practitioner Family | DX: F17.210 Nicotine dependence, cigarettes, uncomplicated (principal) ==